=== PATIENT | male | born 1970 | race Caucasian/White ===

== ENCOUNTER 2017-02-08 22:10 | Observation (INO) ==
[2017-02-08] MEDS ORDERED: Ketorolac 30 MG/ML VIAL IM ONE (22:16)
[2017-02-08] MEDS ORDERED: *HR* HYDROmorphone (PF) 1 MG/ML SYRINGE IM ONE (22:16)
--- NOTE | 2017-02-08 22:23 | Emergency Department Note ---
Disposition Clinical Impression: Effusion, left hip, Left hip pain Disposition: Admitted As Inpatient Condition: Good Time of Disposition: 02:59 Lower Extremity Injury HPI - General Chief Complaint: ED General Medical Stated Complaint: HIP PAIN Time Seen by Provider: 02/08/17 22:15 Source: patient Mode of arrival: EMS Limitations: no limitations Nursing Notes Reviewed: Yes Vital Signs Reviewed: Yes - History of Present Illness HPI Narrative: 46-year-old male with history of chronic back pain arrives here emergency department complaining of left hip pain that acutely occurred roughly 2 weeks ago after a fall and he felt a pop. The patient states he felt much better and had no other complaints. The patient denies any back pain, numbness, tingling, weakness. The patient states he is only complaining of pain. He has severe pain with movement of his left hip, this includes flexion, extension, external and internal rotation. The patient denies any other injury since then. Neurovascularly intact. Injury location: Left hip Onset (ago): week(s) (2, acutely worsened tonight) Mechanism of Injury: fall Context: fall Place: home Pain Severity: moderate, severe Pain Scale: 8 Improves with: nothing Worsens with: nothing Associated symptoms: Reports: unable to bear weight - Related Data Previous Rx's Medication Instructions Recorded OxyCODONE/APAP 10/325 [Percocet 1 each PO Q6HR PRN #10 tablet 02/09/17 10/325 MG] Allergies Allergy/AdvReac Type Severity Reaction Status Date / Time No Known Allergies Allergy Verified 02/08/17 22:13 All systems ED: reviewed and negative except as stated. Constitutional: Denies: fever, chills, weakness, weight change Cardiovascular: Denies: chest pain, palpitations, dyspnea on exertion, edema, syncope Respiratory: Denies: cough, dyspnea, wheezes, hemoptysis, stridor Gastrointestinal: Denies: abdominal pain, nausea, vomiting, diarrhea, constipation, hematemesis, melena, hematochezia Genitourinary: Denies: urgency, dysuria, frequency, hematuria Musculoskeletal: Reports: arthralgia. Denies: back pain, neck pain, myalgia Neurological: Denies: weakness, numbness, paresthesias Past Medical History - Past Medical History Attestation: Yes The following information was validated with the patient. Source: patient Medical history: Reports: non-contributory Surgical history: Reports: non-contributory - Social History Smoking Status: Smoker, status unknown Alcohol use: Reports: none Drug use: Reports: none Physical Exam - General Limitations: no limitations General appearance: alert, in distress (Due to pain) - Head Head exam: atraumatic, normocephalic, normal inspection - Neck Neck exam: Present: normal inspection, full ROM, trachea midline - Chest Chest inspection: Present: normal inspection, symmetric chest wall rise - Respiratory Respiratory exam: Present: normal lung sounds bilaterally - Cardiovascular Cardiovascular exam: Present: regular rate, normal rhythm, normal heart sounds - Abdominal Exam Abdominal exam: Present: soft, Non-Tender. Absent: tenderness, distention, guarding, rebound, rigidity - Extremities Exam Extremities exam: Present: normal inspection, tenderness (Left hip with decreased ROM limited by pain. Pain with flexion and extension, external and internal rotation). Absent: full ROM, pedal edema - Neurological Exam Neurological exam: Present: alert, oriented X3 - Skin Skin exam: Present: warm, dry, intact, normal color Course Vital Signs Temperature 98 F 02/08/17 22:13 Pulse Rate 87 02/08/17 22:13 Respiratory Rate 22 02/08/17 22:13 Blood Pressure 124/85 02/08/17 22:13 O2 Sat by Pulse Oximetry 94 02/08/17 22:13 Temperature 98 F 02/08/17 22:13 Pulse Rate 87 02/09/17 03:00 Respiratory Rate 18 02/08/17 23:05 Blood Pressure 106/73 02/09/17 03:00 O2 Sat by Pulse Oximetry 97 02/09/17 03:00 Oxygen Delivery Oxygen Delivery Room Air Extremity Injury, Lower - MDM Narrative Medical decision making narrative: Patient's CT scan demonstrated small left hip effusion. This is likely associated with a traumatic injury that occurred 2 weeks ago. The patient is comfortable at this time. We will discharge the patient home at this time with follow-up with orthopedic surgery/sports medicine clinic and [facility]. We will provide the patient with analgesic as well as crutches. The patient agrees to plan. He was given strict return precautions in case his pain worsened or he develop fevers or chills. The patient will follow-up outpatient. Patient's vital signs demonstrate no acute findings concerning for a septic joint. The patient has no tachycardia, has been afebrile, and demonstrates no obvious signs of infection. 0151: After the patient attempted to ambulate out the door, he was unable to ambulate due to pain. Given the patient's pain and treatments in the emergency department complying with CT findings, we will admit the patient for observation. We will obtain a CBC and a BMP at this time. Patient made aware and agrees to plan. Patient's ESR and CRP are mildly elevated. The patient does have a mildly elevated leukocytosis. This is all likely associated with pain. We will however admit the patient to the hospitalist given he has inability to ambulate at this time. His pain is well controlled after receiving numerous doses of medications. The patient was accepted by the hospitalist, Dr. Manriquez. - Lab Data Lab results reviewed: Yes I reviewed the patient's lab results. Result diagrams: 02/09/17 02:00 02/09/17 02:00 Lab Results 02/09/17 02/09/17 02/09/17 Range/Units 02:00 02:00 02:00 WBC 16.0 H (4.3-11.1) K/mcL RBC 5.15 (4.19-5.50) M/mcL Hgb 15.5 (12.9-16.9) g/dL Hct 46.8 (37.5-50.1) % MCV 90.9 (83.0-100.0) fL MCH 30.1 (28.0-33.3) pg MCHC 33.1 (31.6-35.5) g/dL RDW 12.9 (11.5-14.5) % Plt Count 239 (140-400) K/mcL MPV 9.7 (9.4-12.4) fL Immature Gran % 0.7 (0-4) % Seg Neutrophils % 85.4 % Lymphocytes % 9.2 % Monocytes % 4.2 % Eosinophils % 0.1 % Basophils % 0.4 % Neutrophils # 13.7 H (1.6-8.9) K/mcL Lymphocytes # 1.5 (0.6-4.6) K/mcL Monocytes # 0.7 (0.0-1.3) K/mcL Eosinophils # 0.0 (0.0-0.6) K/mcL Basophils # 0.1 (0.0-0.2) K/mcL ESR 39 H (0-10) mm/hr Sodium 137 (136-145) mEq/L Potassium 4.2 (3.5-4.5) mEq/L Chloride 102 (98-109) mEq/L Carbon Dioxide 23 (19-29) mEq/L BUN 12 (8-26) mg/dL Creatinine 0.92 (0.72-1.25) mg/dL Est GFR ( Amer) > 60 (> 60) Est GFR (Non-Af Amer) > 60 (> 60) BUN/Creatinine Ratio 13 (6-26) Glucose 134 H (70-99) mg/dL Calculated Osmolality 286 (280-300) Calcium 9.5 (8.6-10.8) mg/dL C-Reactive Protein 10 H (Less than 5) mg/L - Radiology Data Radiology results reviewed: Yes I reviewed the patient's radiology results. Hip X-Ray 02/08/17 22:15 IMPRESSION: No fracture or malalignment. D/ / Tian Aburto MD / Tian Aburto MD Interpreting Provider: Tian Aburto MD Hip CT 02/09/17 00:00 IMPRESSION: Small left hip joint effusion without acute osseous abnormality. D/ / Tian Aburto MD / Tian Aburto MD Interpreting Provider: Tian Aburto MD Attestation Statement - Attestation Attestation: I, Gaston Donahue MD, personally evaluated this patient and discussed their management with the resident physician. I reviewed the resident's note and agree with the documented findings, medical decision making, and plan of care. 46-year-old male presents to the emergency department with a complaint of severe left hip pain which started earlier this evening and rapidly got severe. He denies any fall or injury tonight however he states that about 2 weeks ago he did have a fall and felt a pop in the hip area but he has not had any trouble until tonight. No numbness or tingling or weakness in the leg. No increased back pain. He does have chronic back pain but it is not worse than usual. No prior history of hip pain or problems with his hip. There has been no fever. On examination patient is a well-developed obese male in no acute distress but does appear to be in moderate discomfort. He is alert and oriented 3. There is no cyanosis or diaphoresis. Breath sounds are clear and equal bilaterally. Heart regular rate and rhythm. Abdomen soft and nontender with normal bowel sounds. Patient has tenderness over the anterior left hip area. No redness or warmth to touch. No deformity. Neurovascular function intact distally. He does have marked pain with any movement of the left hip. CT of the left hip obtained and showed a small left hip effusion but otherwise no fracture or acute abnormality. Labs reviewed. Original plan was to discharge the patient with outpatient follow-up however patient's pain was unrelieved with IM Dilaudid and IM Toradol and oral Percocet. Patient was unable to stand or ambulate and even has difficulty moving around on the stretcher due to his severe pain. The hospitalist, Dr. Manriquez, was consulted and accepted admission of the patient for intractable pain.
[2017-02-09] MEDS ORDERED: *HR* OxyCODONE/APAP 10/325 TABLET PO ONE (01:24)
[2017-02-09] MEDS ORDERED: *HR* FentaNYL (PF) 100 MCG/2 ML VIAL IVP ONE (01:51)
[2017-02-09 02:16] LABS: Basophils # 0.1 K/mcL (0.0-0.2); Basophils % 0.4 %; Eosinophils % 0.1 %; Hematocrit 46.8 % (37.5-50.1); Hemoglobin 15.5 g/dL (12.9-16.9); Immature Granulocytes % 0.7 % (0-4); Lymphocytes # 1.5 K/mcL (0.6-4.6); Lymphocytes % 9.2 %; Mean Corpuscular HGB Conc 33.1 g/dL (31.6-35.5); Mean Corpuscular Hemoglobin 30.1 pg (28.0-33.3); Mean Corpuscular Volume 90.9 fL (83.0-100.0); Mean Platelet Volume 9.7 fL (9.4-12.4); Monocytes # 0.7 K/mcL (0.0-1.3); Monocytes % 4.2 %; Neutrophils # 13.7 K/mcL (1.6-8.9); Platelet Count 239 K/mcL (140-400); Red Blood Count 5.15 M/mcL (4.19-5.50); Red Cell Distribution Width 12.9 % (11.5-14.5); Segmented Neutrophils % 85.4 %
[2017-02-09] MEDS ORDERED: *HR* HYDROmorphone 2 MG/ML SYRINGE IVP ONE (02:24)
[2017-02-09 02:27] LABS: BUN/Creatinine Ratio 13 (6-26); Blood Urea Nitrogen 12 mg/dL (8-26); C-Reactive Protein 10 mg/L (Less than 5); Calcium 9.5 mg/dL (8.6-10.8); Carbon Dioxide 23 mEq/L (19-29); Chloride 102 mEq/L (98-109); Glucose 134 mg/dL (70-99); Osmolality,Calculated 286 (280-300); Potassium 4.2 mEq/L (3.5-4.5); Sodium 137 mEq/L (136-145); eGFR For African Americans > 60 (> 60); eGFR For Non-African Americans > 60 (> 60)
[2017-02-09] MEDS ORDERED: *HR* HYDROmorphone (PF) 1 MG/ML SYRINGE IVP ONE (03:58)
--- NOTE | 2017-02-09 04:12 | Event Note ---
Date of Encounter: 02/09/17 Time of Encounter: 04:09 Patient seen and examined. Pain in left hip joint for 2 weeks prompting him to start using a cane. Tonight, severe pain and cant bare weight on LLE and decreased ROM. No fever, chills, concern for STD and apetite is good. No prior history of pathology in left hip joint. No other joint affected. CT shows amall left hip effusion and modest increase in inflammatory markers. Orhtopedic consult. I think we need to tap this fluid to see if it is inflammatory vs. infectious. He is not behaving septic so will hold off antibiotics these few hours till possible diagnostic aspiration.
[2017-02-09] MEDS ORDERED: *HR* HYDROmorphone (PF) 1 MG/ML SYRINGE IVP PRN (04:17)
--- NOTE | 2017-02-09 04:25 | Internal Med History&Physical ---
Date of Encounter: 02/09/17 Time of Encounter: 04:00 Assessment and Plan (1) Effusion, left hip Current visit: Yes Status: Acute CT of patient's left hip revealed a small joint effusion without acute osseous abnormality. -Orthopedic consult. -Patient's joint will need to be tapped to determine inflammatory versus infectious process. -Hold off on antibiotics until diagnostic aspiration. -Uric acid has been ordered. (2) Left hip pain Current visit: Yes Status: Acute Patient's left hip pain is severe and is unrelieved by IM Dilaudid and I am Toradol. Started IV Dilaudid 1 mg Q2. Patient nothing by mouth for possible joint tap. Internal Medicine - H&P: HPI Admitted From: Home History of present illness: Mr. Eli is a 46 year old male who presented to the emergency department with the chief complaint of severe left hip pain. Patient states that this hip pain began earlier in the evening, and rapidly became severe to the point where he was unable to bear weight on that joint. Patient states that approximately 2 weeks ago, he did have a fall and felt a pop in his hip area when he got up in the middle of the night to go to the restroom. He states that since he felt this pop, he had not had much problem with his hip, although he did feel some mild pain. Patient denies having any numbness, tingling, or weakness in the leg. Patient does have a history of chronic back pain, the patient states that this is not worse than usual. He denies any prior history of hip pain or injuries to his hip. He denies fever or chills. He denies a history of arthritis. Patient is not currently sexually active. He denies having a family history of arthritis. Upon arrival to hospital, patient is in moderate discomfort. His range of motion in his left hip is severely limited, especially in hip extension. CT of the left hip was obtained, and showed a small left hip effusion, but there were no acute osseous abnormalities noted. Patient's pain was unrelieved with IM Dilaudid and IM Toradol. Patient will be admitted to the hospital for the management of severe pain. Past Med Surg Social Fam HX - Past Medical History Medical history: hyperlipidemia, hypertension Psychiatric history: anxiety, depression - Past Surgical History Surgical History: non-contributory - Social History Smoking Status: Smoker, status unknown Smokeless Tobacco Status: No Alcohol use: occasionally Drug use: none Internal Medicine - H&P: Meds Atenolol [Tenormin] 25 mg PO DAILY 02/09/17 [History] Duloxetine HCl [Cymbalta] 60 mg PO DAILY 02/09/17 [History] OxyCODONE/APAP 10/325 [Percocet 10/325 MG] 1 each PO Q6HR PRN #10 tablet [Rx] 3 Allergy/AdvReac Type Severity Reaction Status Date / Time No Known Allergies Allergy Verified 02/08/17 22:13 All Systems PM: A 10-system review of systems was performed and is negative for pertinent findings except as documented above in the HPI. - Constitutional Constitutional: no chills, no weakness - Cardiovascular Cardiovascular ROS IM: no chest pain, no diaphoresis, no dyspnea, no lightheadedness, no palpitations, no syncope - Respiratory Respiratory: no cough, no dyspnea, no wheezing, no excessive phlegm production - Musculoskeletal Musculoskeletal ROS IM: back pain, limited range of motion, no numbness, no stiffness, no tingling - Neurological Neurological ROS: no numbness, no paresthesias - Constitutional Vitals: Temp Pulse Resp BP Pulse Ox 98.3 F 81 18 107/72 93 02/09/17 04:14 02/09/17 04:14 02/09/17 04:14 02/09/17 04:14 02/09/17 04:14 General appearance: Present: obese, answers questions appropriately - Respiratory Respiratory exam: Present: CTAB. Absent: accessory muscle use, rales, rhonchi, wheezes - Cardiovascular Cardiovascular exam: Present: RRR, +S1, +S2. Absent: diastolic murmur, gallop, rubs, systolic murmur - Expanded Lower Extremities Exam Hip exam: Present: tenderness. Absent: full ROM Internal Med - H&P Results - Labs CBC & Chem 7: 02/09/17 02:00 02/09/17 02:00
--- NOTE | 2017-02-09 13:25 | Orthopedic Consult Note ---
Date of Encounter: 02/09/17 Time of Encounter: 13:25 Assessment and Plan (1) Effusion, left hip Current Visit: Yes Status: Acute Ortho was not formally consulted until approximately 1300 on this case, consult now completed. IR consulted for Left Hip Aspiration, cultures, gram stain and anaerobic cultures ordered stat to rule out septic joint. No antibiotics have been initiated at this time frame. Leukocytosis noted at 16; ESR/CRP with elevation. No previous trauma, no history of injury CT reviewed: Small hip effusion - There is mild spurring in the left hip. XRAYS reviewed: no acute abnormality noted Overall, patient has improved with rest since admission. He has been afebrile, and otherwise stable. He reports pain improved since admission. He is able to ambulate with walker with minimal pain. Gram Stain from IR: Bacteria observed - Gram + Cocci - Awaiting culture results. spoke with the patient. Recommendations were for a Left hip I&D; however patient has significantly improved since admission, without antibiotics , and would like to hold off on any surgical intervention. Will start IV Vancomycin based off gram stain results 1.5mg/kg until final culture results. Anticipate 3 weeks of IV treatment if cultures continue to indicate septic arthritis. History of Present Illness Chief complaint: Left Hip Pain x 2 weeks HPI: Mr. Eli is a 46 year old male, presented to [facility] ED early this morning due to worsening of his Left hip pain. He reports both hips have been bothering hip for approximately 4 weeks; however over the recent 24 hours, his left hip pain worsened. Upon admission, patient was unable to ambulate secondary to pain to left hip pain. Admitting to a constant, sharp pain that radiated into his groin. Denied any other constitutional symptoms - denied fever, N/V, or malaise. Denies N/T into LLE. Denies calf pain. Admits to low back pain - chronic in nature secondary to previous lumbar surgery. Denies previous trauma, fall or injury to left hip. Past Med Surg Social Fam HX - Past Medical History Medical history: hyperlipidemia, hypertension Psychiatric history: anxiety, depression - Past Surgical History Surgical History: non-contributory - Social History Smoking Status: Smoker, status unknown Smokeless Tobacco Status: No Alcohol use: occasionally Drug use: none Medications and Allergies ALPRAZolam [Xanax 0.5 MG Tablet] 0.5 mg PO BID PRN 02/09/17 [History] Atenolol [Tenormin] 25 mg PO DAILY 02/09/17 [History] Atorvastatin [Lipitor] 40 mg PO HS 02/09/17 [History] Duloxetine HCl [Cymbalta] 60 mg PO DAILY 02/09/17 [History] OxyCODONE/APAP 10/325 [Percocet 10/325 MG] 1 each PO Q6HR PRN #10 tablet [Rx] 3 Allergy/AdvReac Type Severity Reaction Status Date / Time No Known Allergies Allergy Verified 02/08/17 22:13 All Systems Reviewed: A 10-system review of systems was performed and is negative for pertinent findings except as documented above in the HPI. - Constitutional Constitutional: no fever(s), no frequent falls, no headache(s), no weight loss - Cardiovascular Cardiovascular: no chest pain, no dyspnea, no edema, no leg edema, no rapid heart rate, no syncope - Respiratory Respiratory: no cough, no dyspnea, no hemoptysis, no dyspnea on exertion - Musculoskeletal Musculoskeletal: abnormal gait, back pain, limited range of motion, stiffness, no joint swelling, no muscle cramps, no muscle weakness, no numbness, no radiating pain into limb, no tingling Physical Exam - Constitutional Vitals: Temp Pulse Resp BP Pulse Ox 98.4 F 85 18 107/68 96 02/09/17 09:45 02/09/17 09:45 02/09/17 09:45 02/09/17 09:45 02/09/17 09:45 - Hip left Gait: antalgic Tenderness with palpation: none ROM: extension: abnormal ROM: flexion: abnormal ROM: abduction: abnormal ROM: adduction: abnormal ROM: internal rotation: abnormal ROM: external rotation: abnormal (PROM is painfree; stiffness noted with overall mobility.) Strength: extension: Weak Strength: flexion: Weak (NV intact distally, cap RF < 2seconds.) Results - Labs Result Diagrams: 02/09/17 02:00 02/09/17 02:00 Labs: Abnormal lab results WBC 16.0 K/mcL (4.3-11.1) H 02/09/17 02:00 Neutrophils # 13.7 K/mcL (1.6-8.9) H 02/09/17 02:00 ESR 39 mm/hr (0-10) H 02/09/17 02:00 Glucose 134 mg/dL (70-99) H 02/09/17 02:00 C-Reactive Protein 10 mg/L (Less than 5) H 02/09/17 02:00 All other labs normal. - Diagnostic results Hip x-ray: report reviewed, image reviewed Hip CT: report reviewed, image reviewed Consult Discharge Plan - Plan Referrals: Arcelia Cano MD [Primary Care Provider] -
[2017-02-09] MEDS ORDERED: Vancomycin (wt based) 1,000 MG VIAL IV SCH (18:00)
--- NOTE | 2017-02-09 18:10 | Orthopedics Progress Note ---
Date of Encounter: 02/09/17 Time of Encounter: 18:08 Subjective Interval history: Patient seen this afternoon, after hip aspiration which was positive for bacteria. Patient reports chronic left hip pain worsening recently. Patient reports improvement in his pain since admission. Physical exam left lower extremity pain free range of motion of left hip. White blood cell count 16 CRP 10 We discussed the diagnosis of potential septic arthritis patient is a large individual and in order to do an arthrotomy was sustained significant surgical trauma. We discussed the risks of the surgery versus treatment with IV antibiotics. Patient elected for IV antibiotics will be observed for 24 hours if worsening of his symptoms we will revisit possible surgical options. At this point, the patient feels good has a virtually normal left hip exam. Plan will be for IV antibiotics for 3 weeks. This would be the same course of IV and lacks with without an arthrotomy. Reviewed this with the patient will continue with conservative management. Objective Vital signs: Vital Signs Temp Pulse Resp BP Pulse Ox 02/09/17 16:00 98.2 F 81 16 141/83 96 02/09/17 09:45 98.4 F 85 18 107/68 96 02/09/17 06:30 98 F 76 18 104/76 95 02/09/17 04:14 98.3 F 81 18 107/72 93 02/09/17 03:39 18 109/70 Intake and Output 02/09/17 02/09/17 02/09/17 07:59 15:59 23:59 Output Total 400 / 400 Balance -400 / -400 Output: Urine 400 / 400 Other: Weight 155.129 kg Patient Weight 02/09/17 23:59 Weight 155.129 kg - Labs CBC & BMP: 02/09/17 02:00 02/09/17 02:00 Labs: Abnormal lab results WBC 16.0 K/mcL (4.3-11.1) H 02/09/17 02:00 Neutrophils # 13.7 K/mcL (1.6-8.9) H 02/09/17 02:00 ESR 39 mm/hr (0-10) H 02/09/17 02:00 Glucose 134 mg/dL (70-99) H 02/09/17 02:00 C-Reactive Protein 10 mg/L (Less than 5) H 02/09/17 02:00 Consult Discharge Plan - Plan Referrals: Arcelia Cano MD [Primary Care Provider] -
[2017-02-09] MEDS: Vancomycin 2,000 MG in D5% in Water 500 ML IVPB SCH (21:17)
--- NOTE | 2017-02-10 06:30 | Orthopedics Progress Note ---
Date of Encounter: 02/10/17 Time of Encounter: 06:28 Subjective Interval history: Patient doing well this morning states the pain is much better conversation yesterday recommendation is for IV antibiotics for 3 weeks patient will follow up with us at the end of the week. Objective Vital signs: Vital Signs Temp Pulse Resp BP Pulse Ox 02/10/17 04:08 98.1 F 82 15 99/63 94 02/09/17 23:34 98.5 F 79 15 114/74 98 02/09/17 20:04 98.2 F 65 15 110/71 94 02/09/17 16:00 98.2 F 81 16 141/83 96 02/09/17 09:45 98.4 F 85 18 107/68 96 02/09/17 06:30 98 F 76 18 104/76 95 Intake and Output 02/09/17 02/09/17 02/10/17 15:59 23:59 07:59 Intake Total 300 / 300 Output Total 400 / 400 Balance -400 / -400 300 / 300 Intake: Oral 300 / 300 Output: Urine 400 / 400 Other: Meal Dinner Percent of Meal Consumed 90% # Voids 1 Weight 147.418 kg - Labs CBC & BMP: 02/09/17 02:00 02/09/17 02:00 Labs: Abnormal lab results WBC 16.0 K/mcL (4.3-11.1) H 02/09/17 02:00 Neutrophils # 13.7 K/mcL (1.6-8.9) H 02/09/17 02:00 ESR 43 mm/hr (0-10) H 02/10/17 05:32 Glucose 134 mg/dL (70-99) H 02/09/17 02:00 C-Reactive Protein 10 mg/L (Less than 5) H 02/09/17 02:00 Consult Discharge Plan - Plan Referrals: Arcelia Cano MD [Primary Care Provider] -
[2017-02-10 06:40] LABS: Alanine Aminotransferase 29 Units/L (0-55); Albumin 3.1 g/dL (3.5-5.0); Albumin/Globulin Ratio 0.9 (1.1-2.2); Alkaline Phosphatase 60 Units/L (38-126); Aspartate Amino Transferase 28 Units/L (5-34); BUN/Creatinine Ratio 13 (6-26); Bilirubin,Total 1.1 mg/dL (0.2-1.2); Blood Urea Nitrogen 11 mg/dL (8-26); C-Reactive Protein 113 mg/L (Less than 5); Carbon Dioxide 26 mEq/L (19-29); Chloride 104 mEq/L (98-109); Globulin 3.6 g/dL (2.4-3.5); Glucose 99 mg/dL (70-99); Osmolality,Calculated 289 (280-300); Potassium 3.8 mEq/L (3.5-4.5); Sodium 140 mEq/L (136-145); Total Protein 6.7 g/dL (6.0-8.3); Uric Acid 9.1 mg/dL (3.5-7.2); eGFR For African Americans > 60 (> 60); eGFR For Non-African Americans > 60 (> 60)
[2017-02-10 06:51] LABS: Basophils % 0.3 %; Eosinophils # 0.2 K/mcL (0.0-0.6); Eosinophils % 1.7 %; Hematocrit 44.5 % (37.5-50.1); Hemoglobin 14.4 g/dL (12.9-16.9); Immature Granulocytes % 0.7 % (0-4); Lymphocytes # 1.5 K/mcL (0.6-4.6); Lymphocytes % 17.6 %; Mean Corpuscular HGB Conc 32.4 g/dL (31.6-35.5); Mean Corpuscular Hemoglobin 29.2 pg (28.0-33.3); Mean Corpuscular Volume 90.3 fL (83.0-100.0); Mean Platelet Volume 9.9 fL (9.4-12.4); Monocytes # 0.6 K/mcL (0.0-1.3); Monocytes % 6.7 %; Neutrophils # 6.3 K/mcL (1.6-8.9); Platelet Count 199 K/mcL (140-400); Red Blood Count 4.93 M/mcL (4.19-5.50)
[2017-02-10] MEDS ORDERED: Lidocaine -MPF 1% 5 ML AMPUL INFILT ONE (08:41)
[2017-02-10] MEDS: Vancomycin 2,000 MG in D5% in Water 500 ML IVPB SCH ×2 (09:12→20:10)
[2017-02-10] MEDS ORDERED: Acetaminophen 325 MG TABLET PO PRN (10:19)
[2017-02-10] MEDS ORDERED: *HR* OxyCODONE/APAP 5/325 TABLET PO PRN (10:19)
--- NOTE | 2017-02-10 11:52 | Event Note ---
Date of Encounter: 02/10/17 Time of Encounter: 11:48 Day #1 - Follow up WBC normal CRP 113 ESR 43 Improvement with leukocytosis, slight worsening of inflammatory markers. Patient continues to note significant improvement. Will have PT/OT work with him today. Continues to want to pursue conservative treatment for Left Hip - IV antibiotics x 3 weeks -Will start with Vancomycin until final cultures resulted.
[2017-02-10] MEDS ORDERED: ALPRAZolam 0.5 MG TABLET PO PRN (13:43)
--- NOTE | 2017-02-10 14:45 | Internal Med Progress Note ---
Date of Encounter: 02/10/17 Time of Encounter: 11:40 - Assessment and plan (1) Effusion, left hip Current Visit: Yes Status: Acute Assessment and plan: Left hip joint effusion concerning for septic arthritis. Orthopedics following. Joint aspiration done yesterday. Gram stain showed some bacteria. Culture is currently pending. Continue IV vancomycin. Leukocytosis has resolved. Will follow orthopedic recommendations. Supportive care and pain control. Moderate risk for complications. (2) Left hip pain Current Visit: Yes Status: Acute Assessment and plan: Improved since aspiration done yesterday. We will stop IV narcotic medications and place patient on oral medications. (3) Essential hypertension Current Visit: Yes Status: Chronic Assessment and plan: Blood pressure is well controlled. Continue atenolol. (4) Anxiety disorder Current Visit: Yes Status: Acute Assessment and plan: Continue home medications including Xanax as needed for episodes of panic attacks Qualifiers: Anxiety disorder type: panic disorder without agoraphobia Qualified Code(s) : F41.0 - Panic disorder [episodic paroxysmal anxiety] - Subjective Interval history: Patient is feeling better today. Does have some discomfort in his left hip but this is much improved compared to yesterday. He denies any fever or chills. Tolerating diet well. No focal weakness. - Constitutional Vitals: Temp Pulse Resp BP Pulse Ox 98.1 F 98 18 106/72 96 02/10/17 13:54 02/10/17 13:54 02/10/17 13:54 02/10/17 13:54 02/10/17 13:54 General appearance: Present: cooperative, A&O X 3, no acute distress, obese, answers questions appropriately - Respiratory Respiratory exam: Present: CTAB. Absent: accessory muscle use, rales, rhonchi, wheezes - Cardiovascular Cardiovascular exam: Present: RRR, +S1, +S2. Absent: diastolic murmur, gallop, rubs, systolic murmur - GI/Abdominal GI/Abdominal exam: Present: normal bowel sounds, soft, no peritoneal signs. Absent: distended, tenderness - Extremities Exam Extremities exam: Present: full ROM, warm, radial pulses palpable and symmetrical. Absent: calf tenderness, cyanotic, pedal edema - Neurological Exam Neurological exam: Present: alert, oriented X3, no focal deficits. Absent: facial droop, speech deficit Internal Medicine: Result - Labs CBC & Chem 7: 02/10/17 05:32 02/10/17 05:32 Labs: Short CBC 02/10/17 Range/Units 05:32 WBC 8.7 (4.3-11.1) K/mcL Hgb 14.4 (12.9-16.9) g/dL Hct 44.5 (37.5-50.1) % Plt Count 199 (140-400) K/mcL Neutrophils # 6.3 (1.6-8.9) K/mcL BMP 02/10/17 05:32 Sodium 140 Potassium 3.8 Chloride 104 Carbon Dioxide 26 BUN 11 Creatinine 0.83 Glucose 99 Calcium 9.0 Liver Function 02/10/17 Range/Units 05:32 Total Bilirubin 1.1 (0.2-1.2) mg/dL AST 28 (5-34) Units/L ALT 29 (0-55) Units/L Alkaline Phosphatase 60 (38-126) Units/L Albumin 3.1 L (3.5-5.0) g/dL - Impressions Impressions Joint Aspiration/Injection 02/09/17 13:39 IMPRESSION: Successful fluoroscopic-guided aspiration of the left hip joint, yielding 5 cc of complex serous fluid. D/ / Jonny Curran MD / Jonny Curran MD Interpreting Provider: Jonny Curran MD Consult Discharge Plan - Plan Referrals: Arcelia Cano MD [Primary Care Provider] -
--- NOTE | 2017-02-11 08:00 | Orthopedics Progress Note ---
Date of Encounter: 02/11/17 Time of Encounter: 07:58 Subjective Interval history: Patient seen this morning, states he is still doing well pain is still significantly better than prior to admission. Patient did have an elevation in his CRP. On exam patient has minimal discomfort with left hip motion. We once again reviewed options today no gross from hip aspiration, blood cultures negative as well. The patient would like to continue with conservative management continue with the IV therapy. Plan will be to have him follow-up at the end of the week if she is discharged today. Objective Vital signs: Vital Signs Temp Pulse Resp BP Pulse Ox 02/11/17 07:03 98.5 F 88 15 124/82 94 02/10/17 22:22 97.9 F 83 16 123/85 99 02/10/17 17:03 98.0 F 88 16 114/77 98 02/10/17 13:54 98.1 F 98 18 106/72 96 Intake and Output 02/10/17 02/10/17 02/11/17 15:59 23:59 07:59 Intake Total 980 / 980 100 / 100 50 / 50 Balance 980 / 980 100 / 100 50 / 50 Intake: IV Fluids 500 / 500 Vancocin 2,000 MG In Dextrose 5 500 / 500 % 500 ML @ 250 mls/hr IVPB Q12H JUAN RAMON Rx#:[id number] Oral 480 / 480 100 / 100 50 / 50 Other: Meal Breakfast Breakfast Percent of Meal Consumed 100% 100% # Voids 1 1 # Bowel Movements 1 - Labs CBC & BMP: 02/10/17 05:32 02/10/17 05:32 Labs: Abnormal lab results ESR 43 mm/hr (0-10) H 02/10/17 05:32 Uric Acid 9.1 mg/dL (3.5-7.2) H 02/10/17 05:32 C-Reactive Protein 113 mg/L (Less than 5) H 02/10/17 05:32 Albumin 3.1 g/dL (3.5-5.0) L 02/10/17 05:32 Globulin 3.6 g/dL (2.4-3.5) H 02/10/17 05:32 Albumin/Globulin Ratio 0.9 (1.1-2.2) L 02/10/17 05:32 Consult Discharge Plan - Plan Referrals: Arcelia Cano MD [Primary Care Provider] -
[2017-02-11] MEDS: Vancomycin 2,000 MG in D5% in Water 500 ML IVPB SCH (08:26)
--- NOTE | 2017-02-11 11:10 | Discharge Summary ---
Date of Encounter: 02/11/17 Time of Encounter: 11:07 - Discharge Diagnosis (1) Effusion, left hip Priority: Primary Status: Acute (2) Left hip pain Priority: Secondary Status: Acute (3) Essential hypertension Priority: Secondary Status: Chronic (4) Anxiety disorder Priority: Secondary Status: Acute Qualifiers: Anxiety disorder type: panic disorder without agoraphobia Qualified Code(s) : F41.0 - Panic disorder [episodic paroxysmal anxiety] - Discharge Medications Prescriptions: OxyCODONE/APAP 5/325 [Percocet 5/325 MG] 1 each PO Q6HR PRN #14 tablet PRN Reason: Moderate Pain Vancomycin/0.9 % Sod Chloride [Vanco 2 Gram/500 ml-0.9% NaCl] 2 gm IV Q12H #38 plast..bag Home Medications: ALPRAZolam [Xanax 0.5 MG Tablet] 0.5 mg PO BID PRN 02/09/17 [History] Atenolol [Tenormin] 25 mg PO DAILY 02/09/17 [History] Atorvastatin [Lipitor] 40 mg PO HS 02/09/17 [History] Duloxetine HCl [Cymbalta] 60 mg PO DAILY 02/09/17 [History] OxyCODONE/APAP 5/325 [Percocet 5/325 MG] 1 each PO Q6HR PRN #14 tablet 02/11/17 [Rx] Vancomycin/0.9 % Sod Chloride [Vanco 2 Gram/500 ml-0.9% NaCl] 2 gm IV Q12H #38 plast..bag 02/11/17 [Rx] Allergies/Adverse Reactions: 3 Allergy/AdvReac Type Severity Reaction Status Date / Time No Known Allergies Allergy Verified 02/08/17 22:13 Date of admission: 02/09/17 03:16 Primary care physician: Arcelia [facility] Consults: 02/09/17 04:17 Consult to Occupational Therapy [CONS] Routine Comment: Evaluate, develop and implement POC Reason for Consult: severe hip pain, unable to bear weight Consult to Orthopedic Surgery [CONS] Routine Consulting Provider: Stepan Savage Reason for Consult: severe hip pain, unable to bear weight Call Completed: No Consult to Physical Therapy [CONS] Routine Comment: Evaluate, develop and implement POC Reason for Consult: severe hip pain, unable to bear weight Consult to Intermediate Project Manager [CONS] Routine Reason for SW Consult: severe hip pain, unable to bear weight 02/09/17 13:21 Consult to Interventional Radiology [CONS] Routine Consulting Provider: Radiology Camden Colchun Reason for Consult: IR aspiration of left hip with cultures - call completed per VERNON Carr Time Notified: 13:21 Call Completed: Yes 02/10/17 08:41 Consult to Invasive Line Access Team [CONS] Routine Reason for Consult: Picc Line Insertion Line Type: EPIV Discharging clinician: Iliana Moreno Anticipated date of discharge: 02/11/17 - Patient Status Disposition: Home Health Service Condition: Good Functional capacity at discharge: independent ambulation Overall status at discharge: patient is progressing back to baseline - Discharge Instructions Instructions: Vancomycin (Injection), Peripherally Inserted Central Catheters and Midline Catheters (DC), Chronic Hypertension (DC) Follow Up With: Arcelia Cano MD [Primary Care Provider] - (In one week) Angel Burkett MD [Partnered Physician] - (Later this week) - Diet and Activity Activity: increase activity as tolerated Diet: low fat, low cholesterol, low salt diet Hospital course: Mr. Eli is a 46 year old male patient with history of hyperlipidemia, hypertension and anxiety disorder was hospitalized here with severe left hip pain and joint effusion. Per orthopedic recommendations, the joint was aspirated. Gram stain showed the presence of bacteria. As such patient was started on treatment with IV vancomycin. His leukocytosis resolved after initiation of IV antibiotics. His culture results are so far shown no growth. Orthopedics recommends treating patient with IV vancomycin per pharmacy dosing for 3 weeks. They will follow up with the patient in the clinic for further management. Clinically, patient is stable to be discharged home today. He will be discharged with home health to help manage home IV infusion. - Time Spent with Patient Total time spent providing and/or coordinating discharge services: Greater than 30 minutes (35 min) - Constitutional Vitals: Temp Pulse Resp BP Pulse Ox 98.5 F 88 15 124/82 94 02/11/17 07:03 02/11/17 07:03 02/11/17 07:03 02/11/17 07:03 02/11/17 07:03 General appearance: Present: cooperative, A&O X 3, no acute distress, obese, answers questions appropriately - Neck Neck exam general surgery: Present: supple, trachea midline. Absent: lymphadenopathy - Cardiovascular Cardiovascular exam: Present: RRR, +S1, +S2. Absent: diastolic murmur, gallop, rubs, systolic murmur - GI/Abdominal GI/Abdominal exam: Present: normal bowel sounds, soft, no peritoneal signs. Absent: distended, tenderness - Extremities Exam Extremities exam: Present: tenderness (Left hip), warm, radial pulses palpable and symmetrical. Absent: calf tenderness, cyanotic, pedal edema - Neurological Exam Neurological exam: Present: alert, oriented X3, no focal deficits. Absent: facial droop, speech deficit - Skin Skin exam: Present: dry, intact
--- NOTE | 2017-02-11 11:14 | Physician Discharge Referral ---
Home Health/Hosp Referral Info Transfer to: Home Health Provider in Charge Post Discharge: PCP - Diagnosis (1) Effusion, left hip Priority: Primary Status: Acute (2) Left hip pain Priority: Secondary Status: Acute (3) Essential hypertension Priority: Secondary Status: Chronic (4) Anxiety disorder Priority: Secondary Status: Acute - Respiratory Orders Smoking Cessation: Smoking cessation has been advised. For more information, call the [employer] Quit Line at 5-462-PVDB-NOW. - Diet/Nutrition Diet/Nutrition Orders: Cardiac - Activity Activity Orders: Up ad hardeep - Services Needed Following services are medically necessary services: Home Infusion Home Care Orders: Please check vancomycin trough level on 02/13/17. Also check CBC, basic panel, vancomycin trough level, ESR, CRP every Thursday while patient is receiving IV vancomycin - Transfer Medications Prescriptions: Vancomycin/0.9 % Sod Chloride [Vanco 2 Gram/500 ml-0.9% NaCl] 2 gm IV Q12H #38 plast..bag Home Medications: ALPRAZolam [Xanax 0.5 MG Tablet] 0.5 mg PO BID PRN 02/09/17 [History] Atenolol [Tenormin] 25 mg PO DAILY 02/09/17 [History] Atorvastatin [Lipitor] 40 mg PO HS 02/09/17 [History] Duloxetine HCl [Cymbalta] 60 mg PO DAILY 02/09/17 [History] OxyCODONE/APAP 325 [Percocet 10/325 MG] 1 each PO Q6HR PRN #10 tablet [Rx] Vancomycin/0.9 % Sod Chloride [Vanco 2 Gram/500 ml-0.9% NaCl] 2 gm IV Q12H #38 plast..bag 02/11/17 [Rx] Allergies/Adverse Reactions: 3 Allergy/AdvReac Type Severity Reaction Status Date / Time No Known Allergies Allergy Verified 02/08/17 22:13 Certification: Further, I certify that my clinical findings support that this patient is homebound (i.e. absences from home require considerable and taxing effort and are for medical reasons or uatsdin services or infrequently or short duration when for other reasons) because: Homebound Reason: Patient requires assistance of a person or device to safely leave home (Patient requires intravenous antibiotics at home) Attestation: My signature below is to certify that this patient is under my care and that I, or nurse practitioner, or a physician's stores assistant working with me, has a face-to -face encounter with this patient.
[2017-02-11 11:54] VITALS: BP 108/71
[2017-02-11] MEDS ORDERED: Aminoglycoside Consult 1 EACH MC ONE (14:13)
[2017-02-11] MEDS ORDERED: Vancomycin 1,500 MG in D5% in Water 250 ML IVPB SCH (20:00)
== END 2017-02-11 14:14 | disposition home health service (06) ==
LOC: 3NENU 22:10 → EMEROO 22:10 → SUATTDRO 02-09 03:16 → 3NENU 02-09 03:42
PROVIDERS: ADMIT Hospitalist; ATTEND Internal Medicine

== ENCOUNTER 2017-09-14 13:20 | Inpatient (IN) ==
--- NOTE | 2017-09-13 22:48 | Discharge Summary ---
<Nina Pedraza Kanu - Last Filed: 09/13/17 22:45> Date of Encounter: 09/13/17 - Discharge Diagnosis (1) Avascular necrosis of bone of left hip Priority: Primary Status: Acute (2) Status post total hip replacement, left Priority: Primary Status: Acute (3) HLD (hyperlipidemia) Priority: Secondary Status: Chronic Qualifiers: Hyperlipidemia type: unspecified Qualified Code(s): E78.5 - Hyperlipidemia , unspecified (4) Obesity Priority: Secondary Status: Chronic Qualifiers: Obesity type: due to excess calories Obesity classification: unspecified obesity classification Serious obesity comorbidity presence: unspecified whether serious comorbidity present Qualified Code(s): E66.09 - Other obesity due to excess calories (5) Peripheral neuropathy Priority: Secondary Status: Acute Qualifiers: Peripheral neuropathy type: polyneuropathy, unspecified Qualified Code(s): G62.9 - Polyneuropathy, unspecified (6) History of ETOH abuse Priority: Secondary Status: Acute (7) Essential hypertension Priority: Secondary Status: Chronic - Hospital Course Hospital course: Mr. Eli is a 46 year old male - Time Spent with Patient Total time spent providing and/or coordinating discharge services: - Discharge Medications Home Medications: Atenolol [Tenormin] 25 mg PO DAILY 02/09/17 [History] Atorvastatin [Lipitor] 40 mg PO HS 02/09/17 [History] Duloxetine HCl [Cymbalta] 60 mg PO DAILY 02/09/17 [History] ALPRAZolam [Xanax 0.5 MG Tablet] 0.5 mg PO BID PRN 3 Days #6 tablet 09/13/17 [Rx ] Aspirin Enteric Coated [Aspirin EC] 325 mg PO BID #20 tablet. 09/13/17 [Rx] OxyCODONE Immed Rel [Roxicodone 5 MG] 5 mg PO Q6HR PRN 7 Days #28 tablet [Rx] ALPRAZolam [Xanax 0.5 MG Tablet] 0.5 mg PO BID 09/14/17 [History] Ibuprofen 800 mg PO TID PRN 09/14/17 [History] Allergies/Adverse Reactions: 3 Allergy/AdvReac Type Severity Reaction Status Date / Time gabapentin AdvReac TINGLING Verified 09/14/17 13:45 IN THE CHEST Primary care physician: Arcelia Barrios - Patient Status Disposition: Transfer SNF Condition: Good - Discharge Instructions Follow Up With: Angel Burkett MD [Partnered Physician] - Nina Pedraza PAC [Physician Command And Control Officer] - 09/24/17 Arcelia Cano MD [Primary Care Provider] - Additional Instructions: Discharge Instructions: Total Hip Replacement Please call [facility] ([phone]), your Primary Care Physician, or report to the Emergency Room if you have any of the following symptoms: Nausea, vomiting, fever greater that 101.5, swelling, chest pain, shortness of breath, increased pain/redness/drainage/odor for your incision site, numbness/ tingling, or any other concerning symptoms. ACTIVITY:Weight-bearing as tolerated for 8 weeks with hip dislocation precautions that physical therapy taught you. You may progress as tolerated under the guidance of your physical therapist. You do not need to sleep with a pillow between your legs. You can also seep on the operative side or on your stomach. MEDICATIONS: Upon discharge resume your home medications. Take all the medications as prescribed. Take a stool softener if taking narcotic pain medications. Stool softeners are only effective if you drink enough fluids. Drink 6-8 glass of water or fluids a day, unless this is not allowed for another health problem. Despite using stool softeners, if you haven't had a bowel movement in 3 days, please switch to a gentle laxative. Gentle laxatives are sold over the counter. You should have a bowel movement within 24 hours, if not call the office. You will be discharged from the hospital with a prescription for pain medication. You are encouraged to decrease the use of narcotic pain medication as tolerated. Should you require a refill, please call the office. [facility] prescribes narcotic pain medication for only 4-6 weeks after surgery. If you require pain medication beyond this time period, you may be referred to your Primary Care Physician or to the Pain Clinic for further evaluation. Plan ahead for refills on pain medication as many narcotics either need to be picked up at the office or mailed. It is best to call 48-72 hours in advance of needing a prescription refill so you don't run out of medication. To help control the post-operative pain, you may take NSAIDs (Aleve,Advil, Motrin, ibuprofen, naprosyn) or Tylenol as prescribed on the bottle in addition to the pain medication. ANTICOAGULATION (blood thinners): Continue your Aspirin, Lovenox or Coumadin as prescribed to help prevent a blood clot in the leg or in the lungs. As long as your incision remains dry and you tolerate the NSAIDs (Aleve, Advil, Motrin, Ibuprofen, Naprosyn), it is OK to use the NSAIDS while you are taking your anticoagulation medication. Should your incision start to drain, stop the NSAID and contact our office. Common symptoms of blood clot in the legs include: localized pain, swelling, calf tenderness, redness or discoloration of the skin. Blood clot in the lung symptoms include: shortness of breath, rapid pulse, sweating, and chest pain that worsens with deep breathing, coughing up blood, lightheadedness, feelings of anxiety. If you experience any of these symptoms notify your physician immediately, go to the emergency room, or if having trouble breathing, call 911. WOUND CARE: Leave the dressing on for 7 to 10days. You may change the dressing if it is saturated greater than 50%. Do not get the dressing wet at anytime. Wash your hands with antibacterial soap, rinse and dry prior to any wound care. If you have mirna the visiting nurse or rehab facility can remove the stapes 10-14 days after surgery and place steri-strips across the wound. Leave the steri-strips in place until they fall off on their own. You may let water from the shower run on top of the steri-strips. If you do not have a visiting nurse or rehab facility, you will need to return to the office at 10-14 days for the mirna to be removed. If you have itching or redness around the dressing call the office. FOLLOW-UP: Please follow up with your surgeon in the orthopedic clinic in 6 weeks from the day of surgery. If you have mirna that need to be removed, you will need to come back to the office in 10-14 days from the day of surgery. <Angel Burkett - Last Filed: 09/17/17 10:47> Orders not resulted at time of discharge: Pending orders 09/14/17 00:01 XR hip complete LT [XR] Routine H/H [Hemoglobin and Hematocrit] [HEME] Routine 09/14/17 14:47 US anesthesia pain block [US] Routine Date of Encounter: 09/17/17 Time of Encounter: 10:46 - Discharge Diagnosis (1) Morbid obesity with BMI of 45.0-49.9, adult Priority: Secondary Status: Chronic (2) Essential hypertension Priority: Secondary Status: Chronic (3) Anxiety disorder Priority: Secondary Status: Chronic Qualifiers: Anxiety disorder type: panic disorder without agoraphobia Qualified Code(s) : F41.0 - Panic disorder [episodic paroxysmal anxiety] (4) Avascular necrosis of bone of left hip Priority: Primary Status: Chronic (5) Status post total hip replacement, left Priority: Primary Status: Acute (6) HLD (hyperlipidemia) Priority: Secondary Status: Chronic Qualifiers: Hyperlipidemia type: unspecified Qualified Code(s): E78.5 - Hyperlipidemia , unspecified (7) Peripheral neuropathy Priority: Secondary Status: Acute Qualifiers: Peripheral neuropathy type: polyneuropathy, unspecified Qualified Code(s): G62.9 - Polyneuropathy, unspecified (8) History of ETOH abuse Priority: Secondary Status: Chronic - Hospital Course Hospital course: Mr. Eli is a 46 year old male Status post left total hip replacement The patient had an uneventful postoperative course. They received antibiotics and physical therapy and were discharged in stable condition. There will follow -up in the office in 2 weeks. - Time Spent with Patient Total time spent providing and/or coordinating discharge services: [facility] Status Functional capacity at discharge: uses cane/walker Overall status at discharge: patient is progressing back to baseline
[2017-09-14] MEDS: Ringers Solution, Lactated 1,000 ML IVC SCH ×2 (14:10→19:57)
[2017-09-14] MEDS ORDERED: Famotidine 20 MG/2 ML VIAL IVP ONE (14:45)
--- NOTE | 2017-09-14 14:58 | History & Physical Report ---
Date of Encounter: 09/14/17 Time of Encounter: 14:58 24 Hour HP Update - Instructions Instructions: If the History and Physical is less than 30 days old and was completed prior to A.M. admission and or procedure and has NOT been updated on calendar day of procedure please complete this update prior to performing procedure. - Update Patient reports changes in Medical Condition: No Changes in examination, assessment, or condition: No Changes in Medication: No Preop tests/diagnostics Reviewed: Yes Surgery Remains Indicated: Yes Consent for Planned Operative Procedure(s) Verified: Yes - Pre-Operative Checklist Preoperative Checklist Indicated: No Prophylactic Antibiotic Ordered: Yes Is VTE Prophylaxis Indicated?: Yes
[2017-09-14] MEDS ORDERED: *HR* FentaNYL (PF) 100 MCG/2 ML VIAL ONE ×2 (15:19→16:55)
[2017-09-14] MEDS ORDERED: *HR* Midazolam HCl 2 MG/2 ML VIAL ONE (15:19)
[2017-09-14] MEDS ORDERED: Lidocaine -MPF 2% 2 ML VIAL ONE ×2 (15:19→16:44)
[2017-09-14] MEDS ORDERED: Ondansetron 4 MG/2 ML VIAL ONE (15:20)
[2017-09-14] MEDS ORDERED: Dexamethasone 4 MG/ML VIAL ONE (15:20)
--- NOTE | 2017-09-14 15:20 | Anesthesia Evaluation PreOp ---
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 09/13/17 [Rx] OxyCODONE Immed Rel [Roxicodone 5 MG] 5 mg PO Q6HR PRN 7 Days #28 tablet [Rx] ALPRAZolam [Xanax 0.5 MG Tablet] 0.5 mg PO BID 09/14/17 [History] Ibuprofen 800 mg PO TID PRN 09/14/17 [History] 3 Allergy/AdvReac Type Severity Reaction Status Date / Time gabapentin AdvReac TINGLING Verified 09/14/17 13:45 IN THE CHEST - Meds/Allergy Pre-op Review Medications Reviewed: Yes Allergies Reviewed: Yes Beta Blockers on Current Med List: Yes (Atenolol 1030) Anesthesia Results - Labs Laboratory Tests 09/07/17 09/07/17 09/07/17 09:34 09:34 09:34 Hgb 15.0 Hct 45.5 Plt Count 229 APTT 27.1 Sodium 139 Potassium 4.6 BUN 10 Creatinine 0.91 - Imaging EKG: report reviewed (SR Incomplete Rt BBB) Anesthesia Exam O2 Sat Height 1.83 m Height 1.83 m Height 1.83 m Weight 155.129 kg Weight 155.129 kg Weight 155.129 kg O2 Sat by Pulse Oximetry 96 Vital Signs Temp Pulse Resp BP Pulse Ox 98.8 F 91 18 120/88 96 09/14/17 13:37 09/14/17 13:37 09/14/17 13:37 09/14/17 13:37 09/14/17 13:37 Height: 6'0 Weight: 343 lbs NPO (# of Hours): MN Pain Scale: 0 - HEENT Pupil (Motor): Pupils equal, EOMI Mallampati: III Teeth: Normal Oral Opening: Less than or equal to 3 - GAS MASK INSPECTOR LOC: Oriented GAS MASK INSPECTOR Motor: Normal RUE, Normal LUE, Normal RLE, Normal LLE, Normal Face GAS MASK INSPECTOR Sensory: Normal: RUE, LUE, RLE, LLE, Face - Cardiac Rhythm: Regular Murmur: None JVD: No Carotid Bruit: No - Pulmonary Breath Sounds: bilateral Clear Respiratory Effort: Symmetrical Anesthesia Assess/Plan ASA Score: 3 (HTN MO) Modified Hu Scale for Level of Consciousness: Cooperative, oriented, and tranquil Anesthetic Plan: General, Regional Monitoring Plan: Standard Monitors Recovery Plan: PACU (Discussed GA, possible Fascia Iliaca Block, agrees to proceed)
[2017-09-14] MEDS ORDERED: *HR* Propofol 200 MG/20 ML VIAL IVP ONE (15:26)
[2017-09-14] MEDS ORDERED: *HR* Succinylcholine 200 MG/10 ML VIAL IVP ONE (15:27)
[2017-09-14] MEDS ORDERED: Lidocaine -MPF 4% 5 ML AMPUL ONE (15:27)
[2017-09-14] MEDS ORDERED: ROPIVACAINE HCL/PF 0.5% 30 ML VIAL ONE (16:20)
[2017-09-14] MEDS ORDERED: Ethanol\\Acetic Acid\\Na Ace\\Ben 1,000 ML IRRIG.SOLN IR ONE (16:38)
[2017-09-14] MEDS ORDERED: *HR* OxyCODONE Immed Rel 5 MG TABLET PO PRN (16:57)
[2017-09-14] MEDS ORDERED: *HR* Labetalol 100 MG/20 ML MDV IVP PRN (16:57)
[2017-09-14] MEDS ORDERED: *HR* Promethazine 25 MG/ML VIAL IVP PRN (16:57)
--- NOTE | 2017-09-14 17:03 | Anesthesia Procedures ---
Date of Encounter: 09/14/17 Time of Encounter: 17:01 Procedures: Anesthesia - Nerve Block Procedure Date: 09/14/17 Time: 17:02 Allergies/Adv Reactions: gabapentin Adverse Reaction (Verified 09/14/17 13:45) TINGLING IN THE CHEST Pre-op Diagnosis: oa left hip Surgical Procedure: left total hip Checklist: Correct Patient Identifier, Correct procedure, History checked Correct side: Left Blood Thinner: No Monitor Applied: EKG, BP, Pulse Oximetry Supplemental Oxygen via Nasal Cannula (L/min): 2 Sedation: Versed (mg): 2 Sedation: Fentanyl (mcg): 100 Indication: Post Op Analgesia Pre-op Neuro Deficits: No Block Type: Other (fascia iliaca) Catheter placed: No Sterile Technique: Yes Ultrasound used: Yes Anatomy identified: Yes Visual spread of Local: Yes Neuro Stimulation: No Nerve Stimulator Range: 0.2 - 0.4 mA Blood on Needle Aspiration: No Smooth Injection of Local: Yes Pain with Injection of Local: No Prep: Chlorhexadine Needle: 22 x 50 mm Stimuplex Local: Ropivacaine (0.5%) Volume (cc): 30 Number of Attempts: 1 Complications: None/effective block
[2017-09-14] MEDS ORDERED: *HR* PHENYLEPHRINE 1,000 MCG/10 ML SYRINGE IVP ONE (17:22)
[2017-09-14] MEDS ORDERED: EPHEDrine 50 MG/ML VIAL ONE ×2 (17:57→18:01)
[2017-09-14] MEDS ORDERED: *HR* Enoxaparin 30 MG/0.3 ML SYRINGE SQ SCH (18:00)
[2017-09-14] MEDS ORDERED: *HR* Phenylephrine 10 MG/ML VIAL ONE (18:03)
[2017-09-14] MEDS ORDERED: *HR* Rocuronium Bromide 50 MG/5 ML VIAL ONE (18:06)
--- NOTE | 2017-09-14 18:44 | Orthopedic Operative Note ---
Date of procedure: 09/14/17 Pre-op diagnosis: Left hip arthritis/avascular necrosis Post-op diagnosis: same Procedure: Procedure: Left Total Hip Replacment robotic-assisted Estimated blood loss: 400 cc Hardware: Metal and polyethylene replacement. [place] DM Cup: 64 cup Femoral size 11 stem Head: +12 head with Prema Procedural Notes: Grade 4 arthritic changes femoral head with articular stripping of the femoral head, and grade 4 arthritic changes acetabular socket, procedure performed with robotic assistance. No leg length discrepancy on preoperative CT Operative procedure: The patient was brought to the operating room and placed on the operating room table. After general anesthesia was administered the patient was placed in the lateral decubitus position with the operative leg up. All pressure points were padded appropriately and the head was stabilized in the neutral position. The operative extremity was prepped and draped in the sterile surgical fashion patient received IV antibiotic prior to skin incision. 3 Steinmann pins were placed in the iliac crest 3 cm proximal to the anterior superior iliac spine this was for the robotic-assisted sensor. This was done through a small 2 cm incision. A standard posterior approach is made to the operative hip, the incision was made through the skin and subcutaneous tissue hemostasis was obtained with Bovie cautery. Using careful sharp dissection the fascia was identified and incised exposing the external rotators. The femoral checkpoint was placed leg length was measured at this time utilizing robotic assistance. The external rotators were released off the greater trochanter and tagged with # 2 FiberWire suture. The capsule was T'd open and the hip was brought into internal rotation. Patient noted to have grade 4 arthritic changes femoral head with cartilage stripping. The femoral neck cut was made at the appropriate level roughly 15 mm proximal to the lesser trochanter aced on preoperative templating. An anterior capsulotomy was performed for the anterior retractor. Soft tissues removed from the acetabulum. Patient noted to have grade 4 arthritic changes acetabulum. The acetabulum checkpoint was placed confirmed. The acetabulum was then mapped with robotic assistance. Based on the preoperative plan the acetabulum was reamed in one step with a 63 reamer. The 64 acetabulum was impacted with robotic assistance and 41 degrees of abduction and 24 degrees of anteversion. The hip was brought back in to internal rotation and prepared with the box turner followed by the canal finder followed by the reaming process to a size 11 /12 broaching process in 20 degrees anteversion. It was broached up to the appropriate size 11. Trial reduction revealed leg lengths close to normal. The femoral implant was impacted in place in 20 degrees of anteversion. Trial reduction found the hip to be stable with 12 head and Prema. The trials were removed and the real implants were impacted in place. The hip was reduced, patient had robotic confirmed leg length of 10 mm longer than the contralateral side. The hip had excellent stability with forward flexion to 90 degrees adduction of 30 degrees and internal rotation of 60 degrees. The hip had no shuck. The hips after 2 minutes with a antibacterial solution. It was irrigated out with 2 L of pulse irrigation. The checkpoints were removed, Steinmann pins were removed. The hip was closed by the PA. The deep tissue was irrigated and closed deep with #1 PDS suture superficially with 0 PDS suture and skin was closed with Dermabond and zip tie. The patient was placed in a sterile dressing and abduction pillow. The patient was extubated and transferred to the recovery room in stable condition. Anesthesia: GETA Surgeon: Angel Burkett Was there an assistant professor of nursing present: No Estimated blood loss (cc): 400 Condition: stable Disposition: PACU
[2017-09-14] MEDS: *HR* Morphine 2 MG/ML SYRINGE IVP PRN ×2 (19:22→19:38)
[2017-09-14 20:07] LABS: Hematocrit 41.8 % (37.5-50.1); Hemoglobin 13.8 g/dL (12.9-16.9)
[2017-09-14] MEDS: *HR* HYDROmorphone (PF) 1 MG/ML SYRINGE IVP PRN ×2 (20:24→20:30)
--- NOTE | 2017-09-14 21:00 | Anesthesia Evaluation Post Op ---
Date of Encounter: 09/14/17 Time of Encounter: 20:59 - Vital Signs Vital Signs: Vital Signs Temperature 98.8 F 09/14/17 13:37 Pulse Rate 91 09/14/17 13:37 Respiratory Rate 18 09/14/17 13:37 Blood Pressure 120/88 09/14/17 13:37 O2 Sat by Pulse Oximetry 96 09/14/17 13:37 Temperature 97.6 F 09/14/17 20:47 Pulse Rate 90 09/14/17 20:57 Respiratory Rate 16 09/14/17 20:57 Blood Pressure 119/85 09/14/17 20:57 O2 Sat by Pulse Oximetry 96 09/14/17 20:57 - Lungs Lungs: Clear Ascult./Percussion - Airway Airway: Non-obstructed - Cardiovascular Regular Rate - Mental Status Mental Status: Alert & Oriented, Answers Appropriately - Pain Pain Scale: 4 (tolerable) Pain Scale used: Numeric (1 - 10) - Nausea Vomiting Nausea Vomiting: Not Present - Hydration Hydration: Ice chips - Discharge PostOp Status: Transfer Patient to floor
[2017-09-14] MEDS ORDERED: Ondansetron 4 MG/2 ML VIAL IVP PRN (21:52)
[2017-09-14] MEDS ORDERED: Temazepam 15 MG CAPSULE PO PRN (21:52)
[2017-09-14] MEDS ORDERED: MOM Conc 10 ML UD.LIQ PO PRN (21:52)
[2017-09-14] MEDS ORDERED: Naloxone 0.4 MG/ML INJ IVP PRN (21:52)
[2017-09-14] MEDS ORDERED: Sennosides 8.6 MG TABLET PO PRN (21:52)
[2017-09-14] MEDS ORDERED: traMADol 50 MG TABLET PO PRN (21:52)
[2017-09-14] MEDS ORDERED: *HR* OxyCODONE/APAP 5/325 TABLET PO PRN (21:52)
[2017-09-14] MEDS ORDERED: Ringers Solution, Lactated 1,000 ML IVC SCH (21:52)
[2017-09-14] MEDS: ALPRAZolam 0.5 MG TABLET PO SCH (23:20)
[2017-09-14] MEDS: Ascorbic Acid 500 MG TABLET PO SCH (23:20)
[2017-09-14] MEDS: CeFAZolin Syr 3,000MG/30 ML 3,000 MG/30 ML SYRINGE IVPB SCH (23:21)
[2017-09-15 02:22] LABS: Hematocrit 38.9 % (37.5-50.1); Hemoglobin 12.9 g/dL (12.9-16.9)
[2017-09-15 02:46] LABS: BUN/Creatinine Ratio 11 (6-26); Blood Urea Nitrogen 11 mg/dL (6-20); Calcium 8.7 mg/dL (8.6-10.3); Carbon Dioxide 24 mEq/L (23-29); Chloride 101 mEq/L (98-107); Glucose 173 mg/dL (70-105); Osmolality,Calculated 290 (280-300); Potassium 4.7 mEq/L (3.5-5.1); Sodium 138 mEq/L (136-145); eGFR For African Americans > 60 (> 60); eGFR For Non-African Americans > 60 (> 60)
[2017-09-15] MEDS: *HR* OxyCODONE Immed Rel 5 MG TABLET PO PRN ×4 (03:49→23:41)
[2017-09-15] MEDS: CeFAZolin Syr 3,000MG/30 ML 3,000 MG/30 ML SYRINGE IVPB SCH (06:15)
[2017-09-15] MEDS: *HR* Enoxaparin 30 MG/0.3 ML SYRINGE SQ SCH ×2 (06:15→17:31)
--- NOTE | 2017-09-15 06:18 | Orthopedics Progress Note ---
Date of Encounter: 09/15/17 Time of Encounter: 06:17 - Assessment and Plan (1) Morbid obesity with BMI of 45.0-49.9, adult Current Visit: Yes Status: Chronic (2) Essential hypertension Current Visit: No Status: Chronic (3) Anxiety disorder Current Visit: No Status: Chronic Qualifiers: Anxiety disorder type: panic disorder without agoraphobia Qualified Code(s) : F41.0 - Panic disorder [episodic paroxysmal anxiety] (4) Avascular necrosis of bone of left hip Current Visit: No Status: Chronic (5) Status post total hip replacement, left Current Visit: No Status: Acute (6) HLD (hyperlipidemia) Current Visit: No Status: Chronic Qualifiers: Hyperlipidemia type: unspecified Qualified Code(s): E78.5 - Hyperlipidemia , unspecified (7) Peripheral neuropathy Current Visit: No Status: Acute Qualifiers: Peripheral neuropathy type: polyneuropathy, unspecified Qualified Code(s): G62.9 - Polyneuropathy, unspecified (8) History of ETOH abuse Current Visit: No Status: Chronic Subjective Interval history: Patient was seen this morning doing well without complaints. Afebrile vital signs stable. Operative extremity: Neurovascularly intact Dressing clean dry and intact Calves nontender Assessment and plan: Continue with postoperative care Hematocrit 38 Objective Vital signs: Vital Signs Temp Pulse Resp BP Pulse Ox 09/15/17 04:04 97.8 F 82 16 112/77 96 09/14/17 22:15 98.9 F 97 18 124/87 97 09/14/17 21:45 90 16 132/84 95 09/14/17 20:57 90 16 119/85 96 09/14/17 20:47 97.6 F 93 16 125/88 93 09/14/17 20:37 91 16 124/84 92 09/14/17 20:27 97 18 132/94 92 09/14/17 20:17 97.1 F L 96 18 137/92 94 09/14/17 20:07 98 18 129/94 95 09/14/17 19:57 98 18 135/90 96 09/14/17 19:47 98.1 F 101 18 141/84 96 09/14/17 19:37 104 18 123/88 94 09/14/17 19:27 98 18 112/80 94 09/14/17 19:17 97.0 F L 97 18 125/86 97 09/14/17 17:00 88 134/89 98 09/14/17 16:42 89 14 140/87 98 09/14/17 16:30 92 134/90 98 09/14/17 13:37 98.8 F 91 18 120/88 96 Intake and Output 09/14/17 09/14/17 09/15/17 15:59 23:59 07:59 Intake Total 1030 / 1030 Output Total 400 / 400 300 / 300 Balance 630 / 630 -300 / -300 Intake: IV Fluids 1030 / 1030 Lactated Ringers 1,000 ML @ 75 1000 / 1000 mls/hr IVC .[id number] JUAN RAMON Rx#: [id number] Ancef Syringe 3,000 MG/30 ML 3, 30 / 30 000 mg In 30 ml @ 200 mls/hr IVPB Q8H JUAN RAMON Rx#:[id number] Output: Urine 300 / 300 Estimated Blood Loss 400 / 400 Other: Weight 155.129 kg - Labs CBC & BMP: 09/15/17 01:59 09/15/17 01:59 Labs: Abnormal lab results Glucose 173 mg/dL (70-105) H 09/15/17 01:59 - VTE Documentation of Mechanical Device: Venous foot pump, device Consult Discharge Plan - Plan Referrals: Arcelia Cano MD [Primary Care Provider] -
[2017-09-15] MEDS: Multivit/Ca/Min/Fe/FA 1 TAB TABLET PO SCH (08:33)
[2017-09-15] MEDS: ALPRAZolam 0.5 MG TABLET PO SCH ×2 (08:33→20:20)
[2017-09-15] MEDS: Ascorbic Acid 500 MG TABLET PO SCH ×2 (12:06→17:31)
--- NOTE | 2017-09-15 12:11 | Event Note ---
Date of Encounter: 09/15/17 Time of Encounter: 12:10 PCR - POD#1 - left THR - SCREWS PLACED, IN TSCOPE BRACE WITH NO KNEE ROM X 4-6 WEEKS GRAM STAIN NEGATIVE Patient seen at bedside. Labs reviewed. Pain control: yes Participating in PT. All questions and concerns addressed. Educated on use of incentive spirometer. Encouraged ambulation and proper hydration. Patient educated on post-operative restrictions and post-operative care. Addressed: ECF - continuity placed Discharge plan: Added Flexeril, may need RX for continuity D/C to ECF once authorized 09/16 or 09/17
--- NOTE | 2017-09-15 16:56 | Physician Discharge Referral ---
ExtendedCare Referral Info Transfer To: [facility] Provider in Charge: Provider in Charge after Transfer: PCP Institutional Level of Care: Skilled - Diagnosis (1) Avascular necrosis of bone of left hip Priority: Primary Status: Chronic (2) Status post total hip replacement, left Priority: Primary Status: Acute (3) HLD (hyperlipidemia) Priority: Secondary Status: Chronic (4) Obesity Priority: Secondary Status: Chronic (5) Peripheral neuropathy Priority: Secondary Status: Acute (6) History of ETOH abuse Priority: Secondary Status: Chronic (7) Essential hypertension Priority: Secondary Status: Chronic Expected Duration of Placement: < 30 days Prognosis: Good Aware of Diagnosis: Patient Aware of Prognosis: Patient - Transfer Medications Home Medications: Atenolol [Tenormin] 25 mg PO DAILY 02/09/17 [History] Atorvastatin [Lipitor] 40 mg PO HS 02/09/17 [History] Duloxetine HCl [Cymbalta] 60 mg PO DAILY 02/09/17 [History] ALPRAZolam [Xanax 0.5 MG Tablet] 0.5 mg PO BID PRN 3 Days #6 tablet 09/13/17 [Rx ] Aspirin Enteric Coated [Aspirin EC] 325 mg PO BID #20 tablet. 09/13/17 [Rx] OxyCODONE Immed Rel [Roxicodone 5 MG] 5 mg PO Q6HR PRN 7 Days #28 tablet [Rx] ALPRAZolam [Xanax 0.5 MG Tablet] 0.5 mg PO BID 09/14/17 [History] Ibuprofen 800 mg PO TID PRN 09/14/17 [History] Allergies/Adverse Reactions: 3 Allergy/AdvReac Type Severity Reaction Status Date / Time gabapentin AdvReac TINGLING Verified 09/14/17 13:45 IN THE CHEST - Respiratory Orders None Smoking Cessation: Smoking cessation has been advised. For more information, call the [place] Tobacco Quit Line at 6-106-EUSL-NOW. - Ancillary Orders May use pressure relief devices daily prn, May go on [place] w/family/respon green party w /meds at nurse discretion PRN - Mobility Orders Chair, Ambulate - Rehabiliation Orders Rehab Potential: Good Rehab Orders: ROM Exercises, Evaluation for Physical Therapy, Evaluation for Occupational Therapy Other: No knee ROM x 4-6 weeks - protecting soft tissues to allow hip to heal - Treatments List/Other: HIP Continuity Opsite dressing, leave intact until first post-operative visit. If dressing becomes >50% saturated, contact office, remove dressing and place appropriate dressing in its place. Do not allow for dressing to get wet. Zipline/[place] in place, plan to remove at post-operative day #14-16. Total Joint Precautions x 6 weeks Apply cold therapy wrap 3-6x/day for 20 minutes at a time. Encourage ambulation throughout the day Use Incentive spirometer 10x/hour. Elevate affected extremity above heart as tolerated. Brace: Wear hip abductor brace at night x 6 weeks.~ Wear Tscope brace at all times, locked in extension. CERTIFICATION: I certify that the transfer of the above named patient to an Extended Care Facility is necessary for the continuing treatment of the diagnosis listed. The above information is true and accurate reflection of patient's current condition. Confidential - Redisclosure prohibited without a patient's written consent.
[2017-09-16 01:51] LABS: Hematocrit 33.2 % (37.5-50.1)
[2017-09-16 01:53] LABS: Hemoglobin 11.2 g/dL (12.9-16.9)
[2017-09-16 02:11] LABS: BUN/Creatinine Ratio 14 (6-26); Blood Urea Nitrogen 12 mg/dL (6-20); Calcium 8.4 mg/dL (8.6-10.3); Carbon Dioxide 26 mEq/L (23-29); Chloride 100 mEq/L (98-107); Glucose 137 mg/dL (70-105); Osmolality,Calculated 280 (280-300); Potassium 3.7 mEq/L (3.5-5.1); Sodium 134 mEq/L (136-145); eGFR For African Americans > 60 (> 60); eGFR For Non-African Americans > 60 (> 60)
[2017-09-16] MEDS: *HR* Enoxaparin 30 MG/0.3 ML SYRINGE SQ SCH (05:56)
[2017-09-16] MEDS: *HR* OxyCODONE Immed Rel 5 MG TABLET PO PRN (05:56)
--- NOTE | 2017-09-16 06:44 | Orthopedics Progress Note ---
Date of Encounter: 09/16/17 Time of Encounter: 06:43 - Assessment and Plan (1) Morbid obesity with BMI of 45.0-49.9, adult Current Visit: Yes Status: Chronic (2) Essential hypertension Current Visit: No Status: Chronic (3) Anxiety disorder Current Visit: No Status: Chronic Qualifiers: Anxiety disorder type: panic disorder without agoraphobia Qualified Code(s) : F41.0 - Panic disorder [episodic paroxysmal anxiety] (4) Avascular necrosis of bone of left hip Current Visit: No Status: Chronic (5) Status post total hip replacement, left Current Visit: No Status: Acute (6) HLD (hyperlipidemia) Current Visit: No Status: Chronic Qualifiers: Hyperlipidemia type: unspecified Qualified Code(s): E78.5 - Hyperlipidemia , unspecified (7) Peripheral neuropathy Current Visit: No Status: Acute Qualifiers: Peripheral neuropathy type: polyneuropathy, unspecified Qualified Code(s): G62.9 - Polyneuropathy, unspecified (8) History of ETOH abuse Current Visit: No Status: Chronic Subjective Interval history: Patient was seen this morning doing well without complaints. Afebrile vital signs stable. Operative extremity: Neurovascularly intact Dressing clean dry and intact Calves nontender Assessment and plan: Continue with postoperative care Hematocrit 33 cultures negative to date Objective Vital signs: Vital Signs Temp Pulse Resp BP Pulse Ox 09/16/17 04:32 97.5 F L 71 16 134/82 95 09/15/17 23:32 99.4 F 116 16 146/85 93 09/15/17 19:33 98.3 F 117 16 129/81 94 09/15/17 15:12 99.3 F 96 16 136/87 93 09/15/17 12:08 98.1 F 84 16 133/84 95 09/15/17 07:10 98.7 F 92 16 118/76 98 Intake and Output 09/15/17 09/15/17 09/16/17 15:59 23:59 07:59 Intake Total 2800 / 2800 1440 / 1440 400 / 400 Output Total 875 / 875 800 / 800 400 / 400 Balance 1925 / 1925 640 / 640 0 / 0 Intake: Oral 2800 / 2800 1440 / 1440 400 / 400 Output: Urine 875 / 875 800 / 800 400 / 400 Other: Meal Lunch Dinner Percent of Meal Consumed 100% 100% - Labs CBC & BMP: 09/16/17 01:23 09/16/17 01:23 Labs: Abnormal lab results Hgb 11.2 g/dL (12.9-16.9) L D 09/16/17 01:23 Hct 33.2 % (37.5-50.1) L 09/16/17 01:23 Sodium 134 mEq/L (136-145) L 09/16/17 01:23 Glucose 137 mg/dL (70-105) H 09/16/17 01:23 Calcium 8.4 mg/dL (8.6-10.3) L 09/16/17 01:23 - VTE Documentation of Mechanical Device: Venous foot pump, device Consult Discharge Plan - Plan Referrals: Arcelia Cano MD [Primary Care Provider] -
[2017-09-16 07:31] VITALS: BP 138/74
[2017-09-16] MEDS: Ascorbic Acid 500 MG TABLET PO SCH (08:13)
[2017-09-16] MEDS: Multivit/Ca/Min/Fe/FA 1 TAB TABLET PO SCH (08:14)
[2017-09-16] MEDS: ALPRAZolam 0.5 MG TABLET PO SCH (09:54)
== END 2017-09-16 10:45 | DRG 470 ==
LOC: SAMDAY 13:20 → 3NENU 21:50
PROVIDERS: ADMIT Orthopaedic Surgery; ATTEND Orthopaedic Surgery